=== PATIENT | male | born 1960 | race Caucasian/White ===

== ENCOUNTER → 2016-11-28 | Outpatient (CLI) | payer BC | LOC: M LAB 11:46 | PROVIDERS: ATTEND Nurse Practitioner Family | DX: E55.9 Vitamin D deficiency, unspecified (principal) ==

== ENCOUNTER 2017-01-19 13:36 | Emergency (ER) | payer BC ==
[2017-01-19] MEDS ORDERED: KETOROLAC 30 MG/ML VIAL (J1885) As Ordered ONE (13:50)
[2017-01-19] MEDS ORDERED: ONDANSETRON 4MG/2ML VIAL (J2405) As Ordered ONE (13:50)
[2017-01-19] MEDS ORDERED: HYDROmorphone HCL 1 MG/ML SYRINGE (J1170) As Ordered ONE (13:51)
[2017-01-19 14:25] LABS: BASO % 0.3 % (0.0-1.0); EOS # 0.1 K/mm3 (0.0-0.50); EOS % 1.5 % (0.0-3.0); LARGE UNSTAINED CELL # 0.2 K/mm3 (0.0-0.4); LARGE UNSTAINED CELL % 2.2 % (0.0-4.0); LYMPH # 2.3 K/mm3 (1.5-4.5); LYMPH % 24.8 % (24.0-44.0); MEAN CORPUSCULAR VOLUME 85.4 fl (80.0-96.0); MONO # 0.4 K/mm3 (0.0-0.8); MONO % 4.3 % (0.0-5.0); NEUTROPHILS # 6.2 K/mm3 (1.8-7.7); NEUTROPHILS % 66.8 % (36.0-66.0); PLATELET COUNT, AUTOMATED 300 k/mm3 (150-450); RED CELL DISTRIBUTION WIDTH 12.6 % (11.5-14.5); WHITE BLOOD COUNT 9.3 K/mm3 (4.0-10.0)
--- NOTE | 2017-01-19 14:29 | REP ---
Clinical: Left flank pain. Findings: Mild chronic-appearing symmetric perinephric stranding is appreciated along with 2 mm calculus in the left kidney upper pole and 2 mm calculus in the left renal pelvis. Right kidney is normal and without nephrolithiasis and the bilateral ureters are unremarkable and without obstructing calculi. The bladder is normal. Prostate gland appears normal for age. Liver, spleen, pancreas, gallbladder, and bilateral adrenal glands are normal for noncontrast evaluation. The enteric system is without obstruction or acute inflammatory process. Scattered diverticula noted without acute diverticulitis. Normal terminal ileum and appendix identified in the right lower quadrant bilateral fat containing inguinal hernias noted. Pelvis demonstrates normal bladder and age appropriate prostate gland. No pelvic fluid or ascites. No adenopathy. No mass lesion. No free air. Lung bases are clear. Impression: 1. Two 2 mm nonobstructing calculi in the left kidney. No evidence for hydronephrosis, hydroureter or obstructing ureteral calculi. Normal right kidney and bladder. 2. Colonic diverticula without acute diverticulitis. 3. Mildly prominent prostate gland. Signed by Clark Gray MD 01/19/2017 02:20 P
[2017-01-19 14:37] LABS: ANION GAP 10 MEQ/L (8-16); BLOOD UREA NITROGEN 14 MG/DL (7-18); CALCIUM LEVEL 9.1 MG/DL (8.5-10.1); CARBON DIOXIDE LEVEL 26 MEQ/L (21-32); CHLORIDE LEVEL 106 MEQ/L (98-107); CREATININE FOR GFR 1.27 MG/DL (0.70-1.30); GLOMERULAR FILTRATION RATE > 60.0 (>56); GLUCOSE, FASTING 164 MG/DL (70-105); POTASSIUM SERUM 4.4 MEQ/L (3.5-5.1); SODIUM LEVEL 142 MEQ/L (136-145)
--- NOTE | 2017-01-19 15:19 | EDDOCDS ---
Physician Documentation [facility] Name: Yakov Candelaria Age: 56 yrs Sex: Male : 1960 Arrival Date: 01/19/2017 Time: 13:36 Bed I5 / M5 Private MD: Fernando Maldonado [facility] Disposition: 01/19/17 15:11 Discharged to Home/Self Care. Impression: Unspecified renal colic. - Condition is Stable. - Discharge Instructions: Kidney Stones. - Prescriptions for Hydrocodone- Acetaminophen 5-325 mg Oral Tablet - take 1 tablet by ORAL route every 6 hours As needed MDD: 4 tabs; 16 tablet. - Medication Reconciliation form. - Follow up: Emergency Department; When: As needed. Follow up: Fernando Maldonado; When: Call to arrange an appointment; Reason: Wound/Symptom Recheck, Recheck today's complaints, Worsening of conditions, Continuance of care. - Problem is new. - Symptoms are resolved. Historical: - Allergies: no known allergies; - Home Meds: 1. atenolol 50 mg Oral tab 1 tab once daily 2. omeprazole 40 mg Oral cpDR 1 cap once daily 3. aspirin 81 mg Oral chew 1 tab once daily - PMHx: GERD; Hypertension; Kidney stones; - PSHx: Lithotripsy; - Social history: Smoking status: Patient states was never smoker of tobacco. No barriers to communication noted, The patient speaks fluent Guamanian, Speaks appropriately for age. - Family history: Not pertinent. - : The pt / caregiver states he / she is not on anticoagulants. Home medication list is obtained from the patient. - Exposure Risk Screening:: None identified. Vital Signs: 01/19 13:38 BP 117 / 61; Pulse 58; Resp 18; Temp 98.5(T); Pulse Ox 100% on R/A; Weight 102.06 kg / dem1 225 lbs (R); Height 5 ft. 11 in. (180.34 cm) (R); Pain 9/10; 14:36 BP 137 / 67; Pulse 60; Resp 18; Temp 96.9(O); Pulse Ox 96% on R/A; Pain 0/10; nb2 13:38 Body Mass Index 31.38 (102.06 kg, 180.34 cm) dem1 MDM: 13:48 Ondansetron 4 mg IVP once ordered. cc10 13:48 ketorolac 30 mg IVP once ordered. cc10 13:48 IV Saline Lock ordered. cc10 13:48 Dilaudid - HYDROmorphone 0.5 mg IVP once ordered. cc10 13:48 Basic Metabolic Profile Ordered. EDMS 13:48 CBC with Diff Ordered. EDMS 13:48 Urinalysis Ordered. EDMS 13:48 Urine Culture Ordered. EDMS 13:49 CT ABD & PELVIS: No Contrast Ordered. EDMS 14:38 Financial registration complete. mm15 14:40 [facility] Payment Agreement was scanned into [employer] and attached to record. mm15 15:06 Basic Metabolic Profile Reviewed. cc10 15:06 CBC with Diff Reviewed. cc10 15:06 Urinalysis Reviewed. cc10 Administered Medications: 13:54 Drug: Ondansetron 4 mg Route: IVP; Site: right antecubital; srm 13:56 Drug: ketorolac 30 mg [ketorolac 30 mg/mL (1 mL) injection solution (1 mL)] Route: IVP; srm Site: right antecubital; 13:58 Drug: Dilaudid - HYDROmorphone 0.5 mg [hydromorphone 1 mg/mL injection syringe (0.5 srm mL)] Route: IVP; Site: right antecubital; Signatures: Dispatcher [employer] Selena Contreras RN RN srm Linwood Albright mm15 Pankaj Pedraza, PA-C PA-C cc10 Agatha Walker RN RN kc3 The chart was reviewed and I authenticate all verbal orders and agree with the evaluation and treatment provided.Attachments: 14:40 [facility] Payment Agreement mm15 MTDD
--- NOTE | 2017-01-19 15:20 | EDDOCDS ---
Nurse's Notes [facility] Name: Yakov Candelaria Age: 56 yrs Sex: Male : 1960 Arrival Date: 01/19/2017 Time: 13:36 Bed I5 / M5 Private MD: Fernando Maldonado N[facility] Diagnosis: Unspecified renal colic Presentation: 01/19 13:41 Presenting complaint: Patient states: right lower abd pain to groin pain. hx of kidney srm stones. no difficulties urinating. nausea chills. Acute neurological deficits are not present. Mechanism of Injury: No Mechanism of Injury. Adult Sepsis Screening: The patient does not have new or worsening altered mentation. Patient's respiratory rate is less than 22. Systolic blood pressure is greater than 100. Patient has a qSOFA score of 0- Negative Sepsis Screen. Suicide/Homicide risk assessment- the patient denies having any suicidal and/or homicidal ideations and does not present with any other emotional, behavioral or mental health complaints. Status: Patient is not a nursing services manager or dependent. Transition of care: patient was not received from another setting of care. 13:41 Acuity: KAYLEE Level 3 [facility] 13:41 Method Of Arrival: Walkin/Carried/Asstd [facility] Triage Assessment: 13:42 General: Appears uncomfortable. Pain: Pain currently is 9 out of 10 on a pain scale. [facility] HIV screening NA for this visit Offered previously. Musculoskeletal: No deficits noted. Historical: - Allergies: no known allergies; - Home Meds: 1. atenolol 50 mg Oral tab 1 tab once daily 2. omeprazole 40 mg Oral cpDR 1 cap once daily 3. aspirin 81 mg Oral chew 1 tab once daily - PMHx: GERD; Hypertension; Kidney stones; - PSHx: Lithotripsy; - Social history: Smoking status: Patient states was never smoker of tobacco. No barriers to communication noted, The patient speaks fluent Dominican, Speaks appropriately for age. - Family history: Not pertinent. - : The pt / caregiver states he / she is not on anticoagulants. Home medication list is obtained from the patient. - Exposure Risk Screening:: None identified. Screenin:17 Screening information is obtained from the patient. Fall risk: No risks identified. kc3 Assistance ADL's: requires no assistance with activities of daily living. Assistance ADL's: requires no assistance with activities of daily living. Abuse/DV Screen: The patient / caregiver reports he/she is: not in a situation that causes fear, pain or injury. Nutritional screening: No deficits noted. Advance Directives: Currently, there is no health care proxy. home support is adequate. Assessment: 14:05 Pain: Pain currently is 8 out of 10 on a pain scale. GI: Reports LEFT LOWER ABD PAIN srm INTO GROIN. 15:17 General: Appears in no apparent distress, comfortable, Behavior is appropriate for age, kc3 cooperative. Pain: Denies pain. Respiratory: Respiratory effort is even, unlabored. Derm: Skin is normal. Vital Signs: 13:38 BP 117 / 61; Pulse 58; Resp 18; Temp 98.5(T); Pulse Ox 100% on R/A; Weight 102.06 kg dem1 (R); Height 5 ft. 11 in. (180.34 cm) (R); Pain 9/10; 14:36 BP 137 / 67; Pulse 60; Resp 18; Temp 96.9(O); Pulse Ox 96% on R/A; Pain 0/10; nb2 13:38 Body Mass Index 31.38 (102.06 kg, 180.34 cm) [facility] Vitals: 13:38 Log In Time: January 19, 2017 at 13:36. [facility] ED Course: 13:38 Patient visited by Jaswinder Johnston. dem1 13:38 Fernando Maldonado is Private Physician. [facility] 13:38 Patient moved to Waiting [facility] 13:39 Patient moved to Pre RCE dem1 13:42 Triage Initiated srm 13:42 Patient moved to I5 / M5 srm 13:43 Pankaj Pedraza PA-C is PHCP. cc10 13:43 Jules Faulkner MD is Attending Physician. cc10 13:43 Patient visited by Pankaj Pedraza PA-C. cc10 13:43 Patient visited by Pankaj Pedraza PA-C. cc10 13:52 The patient / caregiver is instructed regarding the plan of care and ED course. srm Accompanied by Significant Other, Patient has correct armband on for positive identification. Placed in gown. Bed in low position. 13:52 Inserted saline lock: 20 gauge in right antecubital area and blood collected. srm 14:04 Basic Metabolic Profile Sent. srm 14:04 CBC with Diff Sent. srm 14:07 Patient visited by Selena Whitfield RN. srm 14:35 Urinalysis Sent. kc3 14:35 Urine Culture Sent. kc3 14:36 Patient visited by Janet Mercer. nb2 14:40 [facility] Payment Agreement was scanned into [employer] and attached to record. mm15 15:11 Fernando Maldonado is Referral Physician. cc10 15:18 Discontinued IV lock intact, bleeding controlled, pressure dressing applied, No kc3 redness/swelling at site. No procedures done that require assistance. Administered Medications: 13:54 Drug: Ondansetron 4 mg Route: IVP; Site: right antecubital; srm 13:56 Drug: ketorolac 30 mg [ketorolac 30 mg/mL (1 mL) injection solution (1 mL)] Route: IVP; srm Site: right antecubital; 13:58 Drug: Dilaudid - HYDROmorphone 0.5 mg [hydromorphone 1 mg/mL injection syringe (0.5 srm mL)] Route: IVP; Site: right antecubital; Order Results: Lab Order: Basic Metabolic Profile; SPEC'M 01/19/17 13:51 Test: GLUCOSE, FASTING; Value: 164; Range: 70-105; Abnormal: Above high normal; Units: MG/DL; Status: F Test: BLOOD UREA NITROGEN; Value: 14; Range: 7-18; Units: MG/DL; Status: F Test: CREATININE FOR GFR; Value: 1.27; Range: 0.70-1.30; Units: MG/DL; Status: F Test: GLOMERULAR FILTRATION RATE; Value: > 60.0; Range: >56; Status: F Test: SODIUM LEVEL; Value: 142; Range: 136-145; Units: MEQ/L; Status: F Test: POTASSIUM SERUM; Value: 4.4; Range: 3.5-5.1; Units: MEQ/L; Status: F Test: CHLORIDE LEVEL; Value: 106; Range: 98-107; Units: MEQ/L; Status: F Test: CARBON DIOXIDE LEVEL; Value: 26; Range: 21-32; Units: MEQ/L; Status: F Test: ANION GAP; Value: 10; Range: 8-16; Units: MEQ/L; Status: F Test: CALCIUM LEVEL; Value: 9.1; Range: 8.5-10.1; Units: MG/DL; Status: F Test Note: ; Units are mL/min/1.73 m2 Chronic Kidney Disease Staging per NKF: Stage I & II GFR >=60 Normal to Mildly Decreased Stage III GFR 30-59 Moderately Decreased Stage IV GFR 15-29 Severely Decreased Stage V GFR <15 Very Little GFR Left ESRD GFR <15 on [employer] Lab Order: CBC with Diff; SPEC'M 01/19/17 13:51 Test: WHITE BLOOD COUNT; Value: 9.3; Range: 4.0-10.0; Units: K/mm3; Status: F Test: RED BLOOD COUNT; Value: 5.05; Range: 4.30-6.10; Units: M/mm3; Status: F Test: HEMOGLOBIN; Value: 14.7; Range: 14.0-18.0; Units: g/dl; Status: F Test: HEMATOCRIT; Value: 43.1; Range: 42.0-52.0; Units: %; Status: F Test: MEAN CORPUSCULAR VOLUME; Value: 85.4; Range: 80.0-96.0; Units: fl; Status: F Test: MEAN CORPUSCULAR HEMOGLOBIN; Value: 29.0; Range: 27.0-33.0; Units: pg; Status: F Test: MEAN CORPUSCULAR HGB CONC; Value: 34.0; Range: 32.0-36.5; Units: g/dl; Status: F Test: RED CELL DISTRIBUTION WIDTH; Value: 12.6; Range: 11.5-14.5; Units: %; Status: F Test: PLATELET COUNT, AUTOMATED; Value: 300; Range: 150-450; Units: k/mm3; Status: F Test: NEUTROPHILS %; Value: 66.8; Range: 36.0-66.0; Abnormal: Above high normal; Units: %; Status: F Test: LYMPH %; Value: 24.8; Range: 24.0-44.0; Units: %; Status: F Test: MONO %; Value: 4.3; Range: 0.0-5.0; Units: %; Status: F Test: EOS %; Value: 1.5; Range: 0.0-3.0; Units: %; Status: F Test: BASO %; Value: 0.3; Range: 0.0-1.0; Units: %; Status: F Test: LARGE UNSTAINED CELL %; Value: 2.2; Range: 0.0-4.0; Units: %; Status: F Test: NEUTROPHILS #; Value: 6.2; Range: 1.8-7.7; Units: K/mm3; Status: F Test: LYMPH #; Value: 2.3; Range: 1.5-4.5; Units: K/mm3; Status: F Test: MONO #; Value: 0.4; Range: 0.0-0.8; Units: K/mm3; Status: F Test: EOS #; Value: 0.1; Range: 0.0-0.50; Units: K/mm3; Status: F Test: BASO #; Value: 0.0; Range: 0.0-0.2; Units: K/mm3; Status: F Test: LARGE UNSTAINED CELL #; Value: 0.2; Range: 0.0-0.4; Units: K/mm3; Status: F Lab Order: Urinalysis; SPEC'M 01/19/17 14:30 Test: APPEARANCE, URINE; Value: CLOUDY; Range: CLEAR; Abnormal: Above high normal; Status: F Test: COLOR, URINE; Value: FREDO; Range: YELLOW; Status: F Test: PH,URINE; Value: 5.0; Range: 5.0-9.0; Units: UNITS; Status: F Test: SPECIFIC GRAVITY URINE AUTO; Value: 1.027; Range: 1.002-1.035; Status: F Test: PROTEIN, URINE AUTO; Value: 2+; Range: NEGATIVE; Abnormal: Above high normal; Units: mg/dL; Status: F Test: GLUCOSE, URINE (UA) AUTO; Value: NEGATIVE; Range: NEGATIVE; Units: mg/dL; Status: F Test: KETONE, URINE AUTO; Value: TRACE; Range: NEGATIVE; Abnormal: Above high normal; Units: mg/dL; Status: F Test: UROBILINOGEN, URINE AUTO; Value: 0.2; Range: 0.0-2.0; Units: mg/dL; Status: F Test: BILIRUBIN, URINE AUTO; Value: NEGATIVE; Range: NEGATIVE; Status: F Test: NITRITE, URINE AUTO; Value: NEGATIVE; Range: NEGATIVE; Status: F Test: LEUKOCYTE ESTERASE, URINE AUTO; Value: NEGATIVE; Range: NEGATIVE; Status: F Test: BLOOD, URINE BLOOD; Value: 3+; Range: NEGATIVE; Abnormal: Above high normal; Status: F Test: WBC, URINE AUTO; Value: 29; Range: 0-3; Abnormal: Above high normal; Units: /HPF; Status: F Test: RBC, URINE AUTO; Value: 130; Range: 0-3; Abnormal: Above high normal; Units: /HPF; Status: F Test: BACTERIA, URINE AUTO; Value: 1+; Range: NEGATIVE; Abnormal: Above high normal; Status: F Test: SQUAMOUS EPITHELIAL CELL UR AU; Value: 0; Range: 0-6; Units: /HPF; Status: F Test: MUCUS, URINE; Value: LARGE; Range: NEGATIVE; Status: F Test: HYALINE CAST, URINE AUTO; Value: 0; Range: 0-1; Units: /LPF; Status: F Outcome: 15:11 Discharge ordered by Provider. cc10 15:18 Discharge Assessment: Patient awake, alert and oriented x 3. No cognitive and/or kc3 functional deficits noted. Patient verbalized understanding of disposition instructions. patient administered narcotics - yes. Pt provided with safe discharge. The following High Risk Discharge criteria are identified: None. Discharged to home ambulatory. Condition: stable. Discharge instructions given to patient, Instructed on discharge instructions, follow up and referral plans. medication usage, Demonstrated understanding of instructions, medications, Pt was receptive of discharge instructions/ teaching. Prescriptions given X 1. No special radiology studies were completed. Property :Personal belongings accompany Pt. 15:18 Patient left the ED. kc3 Signatures: Selena Whitfield, RN RN Jaswinder Becker dem1 Linwood Albright mm15 Pankaj Pedraza, PA-C PA-C cc10 Agatha Walker RN RN kc3 Janet Mercer MTDD
--- NOTE | 2017-01-21 16:19 | EDDOCDS ---
Nurse's Notes [facility] Name: Yakov Candelaria Age: 56 yrs Sex: Male : 1960 Arrival Date: 01/19/2017 Time: 13:36 Bed I5 / M5 Private MD: Fernando Maldonado NCFM Diagnosis: Unspecified renal colic Presentation: 01/19 13:41 Presenting complaint: Patient states: right lower abd pain to groin pain. hx of kidney srm stones. no difficulties urinating. nausea chills. Acute neurological deficits are not present. Mechanism of Injury: No Mechanism of Injury. Adult Sepsis Screening: The patient does not have new or worsening altered mentation. Patient's respiratory rate is less than 22. Systolic blood pressure is greater than 100. Patient has a qSOFA score of 0- Negative Sepsis Screen. Suicide/Homicide risk assessment- the patient denies having any suicidal and/or homicidal ideations and does not present with any other emotional, behavioral or mental health complaints. Status: Patient is not a dispatcher service or work or dependent. Transition of care: patient was not received from another setting of care. 13:41 Acuity: KAYLEE Level 3 [facility] 13:41 Method Of Arrival: Walkin/Carried/Asstd [facility] Triage Assessment: 13:42 General: Appears uncomfortable. Pain: Pain currently is 9 out of 10 on a pain scale. [facility] HIV screening NA for this visit Offered previously. Musculoskeletal: No deficits noted. Historical: - Allergies: no known allergies; - Home Meds: 1. atenolol 50 mg Oral tab 1 tab once daily 2. omeprazole 40 mg Oral cpDR 1 cap once daily 3. aspirin 81 mg Oral chew 1 tab once daily - PMHx: GERD; Hypertension; Kidney stones; - PSHx: Lithotripsy; - Social history: Smoking status: Patient states was never smoker of tobacco. No barriers to communication noted, The patient speaks fluent Burundian, Speaks appropriately for age. - Family history: Not pertinent. - : The pt / caregiver states he / she is not on anticoagulants. Home medication list is obtained from the patient. - Exposure Risk Screening:: None identified. Screenin:17 Screening information is obtained from the patient. Fall risk: No risks identified. kc3 Assistance ADL's: requires no assistance with activities of daily living. Assistance ADL's: requires no assistance with activities of daily living. Abuse/DV Screen: The patient / caregiver reports he/she is: not in a situation that causes fear, pain or injury. Nutritional screening: No deficits noted. Advance Directives: Currently, there is no health care proxy. home support is adequate. Assessment: 14:05 Pain: Pain currently is 8 out of 10 on a pain scale. GI: Reports LEFT LOWER ABD PAIN srm INTO GROIN. 15:17 General: Appears in no apparent distress, comfortable, Behavior is appropriate for age, kc3 cooperative. Pain: Denies pain. Respiratory: Respiratory effort is even, unlabored. Derm: Skin is normal. Vital Signs: 13:38 BP 117 / 61; Pulse 58; Resp 18; Temp 98.5(T); Pulse Ox 100% on R/A; Weight 102.06 kg dem1 (R); Height 5 ft. 11 in. (180.34 cm) (R); Pain 9/10; 14:36 BP 137 / 67; Pulse 60; Resp 18; Temp 96.9(O); Pulse Ox 96% on R/A; Pain 0/10; nb2 13:38 Body Mass Index 31.38 (102.06 kg, 180.34 cm) [facility] Vitals: 13:38 Log In Time: January 19, 2017 at 13:36. [facility] ED Course: 13:38 Patient visited by Jaswinder Johnston. dem1 13:38 Fernando Maldonado is Private Physician. [facility] 13:38 Patient moved to Waiting [facility] 13:39 Patient moved to Pre RCE dem1 13:42 Triage Initiated srm 13:42 Patient moved to I5 / M5 srm 13:43 Pankaj Pedraza PA-C is PHCP. cc10 13:43 Jules Faulkner MD is Attending Physician. cc10 13:43 Patient visited by Pankaj Pedraza PA-C. cc10 13:43 Patient visited by Pankaj ePdraza PA-C. cc10 13:52 The patient / caregiver is instructed regarding the plan of care and ED course. srm Accompanied by Significant Other, Patient has correct armband on for positive identification. Placed in gown. Bed in low position. 13:52 Inserted saline lock: 20 gauge in right antecubital area and blood collected. srm 14:04 Basic Metabolic Profile Sent. srm 14:04 CBC with Diff Sent. srm 14:07 Patient visited by Selena Whitfield RN. srm 14:35 Urinalysis Sent. kc3 14:35 Urine Culture Sent. kc3 14:36 Patient visited by Janet Mercer. nb2 14:40 [facility] Payment Agreement was scanned into [employer] and attached to record. mm15 15:11 Fernando Maldonado is Referral Physician. cc10 15:18 Discontinued IV lock intact, bleeding controlled, pressure dressing applied, No kc3 redness/swelling at site. No procedures done that require assistance. 15:19 CT ABD & PELVIS: No Contrast Returned. EDMS 18:18 T-Sheet-- Draft Copy was scanned into [employer] and attached to record. klr Administered Medications: 13:54 Drug: Ondansetron 4 mg Route: IVP; Site: right antecubital; srm 13:56 Drug: ketorolac 30 mg [ketorolac 30 mg/mL (1 mL) injection solution (1 mL)] Route: IVP; srm Site: right antecubital; 13:58 Drug: Dilaudid - HYDROmorphone 0.5 mg [hydromorphone 1 mg/mL injection syringe (0.5 srm mL)] Route: IVP; Site: right antecubital; Order Results: Lab Order: Basic Metabolic Profile; SPEC'M 01/19/17 13:51 Test: GLUCOSE, FASTING; Value: 164; Range: 70-105; Abnormal: Above high normal; Units: MG/DL; Status: F Test: BLOOD UREA NITROGEN; Value: 14; Range: 7-18; Units: MG/DL; Status: F Test: CREATININE FOR GFR; Value: 1.27; Range: 0.70-1.30; Units: MG/DL; Status: F Test: GLOMERULAR FILTRATION RATE; Value: > 60.0; Range: >56; Status: F Test: SODIUM LEVEL; Value: 142; Range: 136-145; Units: MEQ/L; Status: F Test: POTASSIUM SERUM; Value: 4.4; Range: 3.5-5.1; Units: MEQ/L; Status: F Test: CHLORIDE LEVEL; Value: 106; Range: 98-107; Units: MEQ/L; Status: F Test: CARBON DIOXIDE LEVEL; Value: 26; Range: 21-32; Units: MEQ/L; Status: F Test: ANION GAP; Value: 10; Range: 8-16; Units: MEQ/L; Status: F Test: CALCIUM LEVEL; Value: 9.1; Range: 8.5-10.1; Units: MG/DL; Status: F Test Note: ; Units are mL/min/1.73 m2 Chronic Kidney Disease Staging per NKF: Stage I & II GFR >=60 Normal to Mildly Decreased Stage III GFR 30-59 Moderately Decreased Stage IV GFR 15-29 Severely Decreased Stage V GFR <15 Very Little GFR Left ESRD GFR <15 on TOOL PUSHER Lab Order: CBC with Diff; SPEC'M 01/19/17 13:51 Test: WHITE BLOOD COUNT; Value: 9.3; Range: 4.0-10.0; Units: K/mm3; Status: F Test: RED BLOOD COUNT; Value: 5.05; Range: 4.30-6.10; Units: M/mm3; Status: F Test: HEMOGLOBIN; Value: 14.7; Range: 14.0-18.0; Units: g/dl; Status: F Test: HEMATOCRIT; Value: 43.1; Range: 42.0-52.0; Units: %; Status: F Test: MEAN CORPUSCULAR VOLUME; Value: 85.4; Range: 80.0-96.0; Units: fl; Status: F Test: MEAN CORPUSCULAR HEMOGLOBIN; Value: 29.0; Range: 27.0-33.0; Units: pg; Status: F Test: MEAN CORPUSCULAR HGB CONC; Value: 34.0; Range: 32.0-36.5; Units: g/dl; Status: F Test: RED CELL DISTRIBUTION WIDTH; Value: 12.6; Range: 11.5-14.5; Units: %; Status: F Test: PLATELET COUNT, AUTOMATED; Value: 300; Range: 150-450; Units: k/mm3; Status: F Test: NEUTROPHILS %; Value: 66.8; Range: 36.0-66.0; Abnormal: Above high normal; Units: %; Status: F Test: LYMPH %; Value: 24.8; Range: 24.0-44.0; Units: %; Status: F Test: MONO %; Value: 4.3; Range: 0.0-5.0; Units: %; Status: F Test: EOS %; Value: 1.5; Range: 0.0-3.0; Units: %; Status: F Test: BASO %; Value: 0.3; Range: 0.0-1.0; Units: %; Status: F Test: LARGE UNSTAINED CELL %; Value: 2.2; Range: 0.0-4.0; Units: %; Status: F Test: NEUTROPHILS #; Value: 6.2; Range: 1.8-7.7; Units: K/mm3; Status: F Test: LYMPH #; Value: 2.3; Range: 1.5-4.5; Units: K/mm3; Status: F Test: MONO #; Value: 0.4; Range: 0.0-0.8; Units: K/mm3; Status: F Test: EOS #; Value: 0.1; Range: 0.0-0.50; Units: K/mm3; Status: F Test: BASO #; Value: 0.0; Range: 0.0-0.2; Units: K/mm3; Status: F Test: LARGE UNSTAINED CELL #; Value: 0.2; Range: 0.0-0.4; Units: K/mm3; Status: F Lab Order: Urinalysis; SPEC'M 01/19/17 14:30 Test: APPEARANCE, URINE; Value: CLOUDY; Range: CLEAR; Abnormal: Above high normal; Status: F Test: COLOR, URINE; Value: FREDO; Range: YELLOW; Status: F Test: PH,URINE; Value: 5.0; Range: 5.0-9.0; Units: UNITS; Status: F Test: SPECIFIC GRAVITY URINE AUTO; Value: 1.027; Range: 1.002-1.035; Status: F Test: PROTEIN, URINE AUTO; Value: 2+; Range: NEGATIVE; Abnormal: Above high normal; Units: mg/dL; Status: F Test: GLUCOSE, URINE (UA) AUTO; Value: NEGATIVE; Range: NEGATIVE; Units: mg/dL; Status: F Test: KETONE, URINE AUTO; Value: TRACE; Range: NEGATIVE; Abnormal: Above high normal; Units: mg/dL; Status: F Test: UROBILINOGEN, URINE AUTO; Value: 0.2; Range: 0.0-2.0; Units: mg/dL; Status: F Test: BILIRUBIN, URINE AUTO; Value: NEGATIVE; Range: NEGATIVE; Status: F Test: NITRITE, URINE AUTO; Value: NEGATIVE; Range: NEGATIVE; Status: F Test: LEUKOCYTE ESTERASE, URINE AUTO; Value: NEGATIVE; Range: NEGATIVE; Status: F Test: BLOOD, URINE BLOOD; Value: 3+; Range: NEGATIVE; Abnormal: Above high normal; Status: F Test: WBC, URINE AUTO; Value: 29; Range: 0-3; Abnormal: Above high normal; Units: /HPF; Status: F Test: RBC, URINE AUTO; Value: 130; Range: 0-3; Abnormal: Above high normal; Units: /HPF; Status: F Test: BACTERIA, URINE AUTO; Value: 1+; Range: NEGATIVE; Abnormal: Above high normal; Status: F Test: SQUAMOUS EPITHELIAL CELL UR AU; Value: 0; Range: 0-6; Units: /HPF; Status: F Test: MUCUS, URINE; Value: LARGE; Range: NEGATIVE; Status: F Test: HYALINE CAST, URINE AUTO; Value: 0; Range: 0-1; Units: /LPF; Status: F Lab Order: Urine Culture; SPEC'M 01/19/17 14:30 Test: URINE CULTURE; Value: <EXTERNAL COMMENT eCWMed> FULL REPORT IN LAB NOTES (eCW and Medent).; Status: F Test: URINE CULTURE; Value: URINE CULTURE RESULT NO GROWTH; Status: F Radiology Order: CT ABD & PELVIS: No Contrast Test: CT ABD & PELVIS: No Contrast REASON FOR EXAMINATION: Renal colic; Clinical: Left flank pain.; ; Findings:; Mild chronic-appearing symmetric perinephric stranding is appreciated along with; 2 mm calculus in the left kidney upper pole and 2 mm calculus in the left renal; pelvis. Right kidney is normal and without nephrolithiasis and the bilateral; ureters are unremarkable and without obstructing calculi. The bladder is normal.; Prostate gland appears normal for age.; ; Liver, spleen, pancreas, gallbladder, and bilateral adrenal glands are normal for; noncontrast evaluation. The enteric system is without obstruction or acute; inflammatory process. Scattered diverticula noted without acute diverticulitis.; Normal terminal ileum and appendix identified in the right lower quadrant; bilateral fat containing inguinal hernias noted. Pelvis demonstrates normal; bladder and age appropriate prostate gland. No pelvic fluid or ascites. No; adenopathy. No mass lesion. No free air. Lung bases are clear.; ; Impression:; 1. Two 2 mm nonobstructing calculi in the left kidney. No evidence for; hydronephrosis, hydroureter or obstructing ureteral calculi. Normal right kidney; and bladder.; 2. Colonic diverticula without acute diverticulitis.; 3. Mildly prominent prostate gland.; ; ; ; Signed by; Clark Gray MD 01/19/2017 02:20 P; Outcome: 15:11 Discharge ordered by Provider. cc10 15:18 Discharge Assessment: Patient awake, alert and oriented x 3. No cognitive and/or kc3 functional deficits noted. Patient verbalized understanding of disposition instructions. patient administered narcotics - yes. Pt provided with safe discharge. The following High Risk Discharge criteria are identified: None. Discharged to home ambulatory. Condition: stable. Discharge instructions given to patient, Instructed on discharge instructions, follow up and referral plans. medication usage, Demonstrated understanding of instructions, medications, Pt was receptive of discharge instructions/ teaching. Prescriptions given X 1. No special radiology studies were completed. Property :Personal belongings accompany Pt. 15:18 Patient left the ED. kc3 Signatures: Dispatcher [employer] EDMS Selena Whitfield, RN RN Jaswinder Becker dem1 Linwood Albright mm15 Pankaj Pedraza, PA-C PA-C cc10 Agatha Walker RN RN kc3 Marissa Deras Nicole nb2 Chart Complete MTDD
--- NOTE | 2017-01-21 16:19 | EDDOCDS ---
Physician Documentation [facility] Name: Yakov Candelaria Age: 56 yrs Sex: Male : 1960 Arrival Date: 01/19/2017 Time: 13:36 Bed I5 / M5 Private MD: Fernando Maldonado [facility] Disposition: 01/19/17 15:11 Discharged to Home/Self Care. Impression: Unspecified renal colic. - Condition is Stable. - Discharge Instructions: Kidney Stones. - Prescriptions for Hydrocodone- Acetaminophen 5-325 mg Oral Tablet - take 1 tablet by ORAL route every 6 hours As needed MDD: 4 tabs; 16 tablet. - Medication Reconciliation form. - Follow up: Emergency Department; When: As needed. Follow up: Fernando Madlonado; When: Call to arrange an appointment; Reason: Wound/Symptom Recheck, Recheck today's complaints, Worsening of conditions, Continuance of care. - Problem is new. - Symptoms are resolved. Historical: - Allergies: no known allergies; - Home Meds: 1. atenolol 50 mg Oral tab 1 tab once daily 2. omeprazole 40 mg Oral cpDR 1 cap once daily 3. aspirin 81 mg Oral chew 1 tab once daily - PMHx: GERD; Hypertension; Kidney stones; - PSHx: Lithotripsy; - Social history: Smoking status: Patient states was never smoker of tobacco. No barriers to communication noted, The patient speaks fluent Cypriot, Speaks appropriately for age. - Family history: Not pertinent. - : The pt / caregiver states he / she is not on anticoagulants. Home medication list is obtained from the patient. - Exposure Risk Screening:: None identified. Vital Signs: 01/19 13:38 BP 117 / 61; Pulse 58; Resp 18; Temp 98.5(T); Pulse Ox 100% on R/A; Weight 102.06 kg / dem1 225 lbs (R); Height 5 ft. 11 in. (180.34 cm) (R); Pain 9/10; 14:36 BP 137 / 67; Pulse 60; Resp 18; Temp 96.9(O); Pulse Ox 96% on R/A; Pain 0/10; nb2 13:38 Body Mass Index 31.38 (102.06 kg, 180.34 cm) dem1 MDM: 13:48 Ondansetron 4 mg IVP once ordered. cc10 13:48 ketorolac 30 mg IVP once ordered. cc10 13:48 IV Saline Lock ordered. cc10 13:48 Dilaudid - HYDROmorphone 0.5 mg IVP once ordered. cc10 13:48 Basic Metabolic Profile Ordered. EDMS 13:48 CBC with Diff Ordered. EDMS 13:48 Urinalysis Ordered. EDMS 13:48 Urine Culture Ordered. EDMS 13:49 CT ABD & PELVIS: No Contrast Ordered. EDMS 14:38 Financial registration complete. mm15 14:40 [facility] Payment Agreement was scanned into [employer] and attached to record. mm15 15:06 Basic Metabolic Profile Reviewed. cc10 15:06 CBC with Diff Reviewed. cc10 15:06 Urinalysis Reviewed. cc10 18:18 T-Sheet-- Draft Copy was scanned into [employer] and attached to record. klr Administered Medications: 13:54 Drug: Ondansetron 4 mg Route: IVP; Site: right antecubital; srm 13:56 Drug: ketorolac 30 mg [ketorolac 30 mg/mL (1 mL) injection solution (1 mL)] Route: IVP; srm Site: right antecubital; 13:58 Drug: Dilaudid - HYDROmorphone 0.5 mg [hydromorphone 1 mg/mL injection syringe (0.5 srm mL)] Route: IVP; Site: right antecubital; Signatures: Dispatcher [employer] EDMS Selena Whitfield RN RN [facility] Linwood Albright mm15 Pankaj Pedraza PAAlbaC PA-C cc10 Agatha Walker RN RN kc3 Marissa Deras klr The chart was reviewed and I authenticate all verbal orders and agree with the evaluation and treatment provided.Attachments: 14:40 [facility] Payment Agreement mm15 18:18 T-Sheet-- Draft Copy klr Chart Complete MTDD
--- NOTE | 2017-01-21 16:19 | EDDOCDS ---
Physician Documentation [facility] Name: Yakov Candelaria Age: 56 yrs Sex: Male : 1960 Arrival Date: 01/19/2017 Time: 13:36 Bed I5 / M5 Private MD: Fernando Maldonado [facility] Disposition: 01/19/17 15:11 Discharged to Home/Self Care. Impression: Unspecified renal colic. - Condition is Stable. - Discharge Instructions: Kidney Stones. - Prescriptions for Hydrocodone- Acetaminophen 5-325 mg Oral Tablet - take 1 tablet by ORAL route every 6 hours As needed MDD: 4 tabs; 16 tablet. - Medication Reconciliation form. - Follow up: Emergency Department; When: As needed. Follow up: Fernando Maldonado; When: Call to arrange an appointment; Reason: Wound/Symptom Recheck, Recheck today's complaints, Worsening of conditions, Continuance of care. - Problem is new. - Symptoms are resolved. Historical: - Allergies: no known allergies; - Home Meds: 1. atenolol 50 mg Oral tab 1 tab once daily 2. omeprazole 40 mg Oral cpDR 1 cap once daily 3. aspirin 81 mg Oral chew 1 tab once daily - PMHx: GERD; Hypertension; Kidney stones; - PSHx: Lithotripsy; - Social history: Smoking status: Patient states was never smoker of tobacco. No barriers to communication noted, The patient speaks fluent British, Speaks appropriately for age. - Family history: Not pertinent. - : The pt / caregiver states he / she is not on anticoagulants. Home medication list is obtained from the patient. - Exposure Risk Screening:: None identified. Vital Signs: 01/19 13:38 BP 117 / 61; Pulse 58; Resp 18; Temp 98.5(T); Pulse Ox 100% on R/A; Weight 102.06 kg / dem1 225 lbs (R); Height 5 ft. 11 in. (180.34 cm) (R); Pain 9/10; 14:36 BP 137 / 67; Pulse 60; Resp 18; Temp 96.9(O); Pulse Ox 96% on R/A; Pain 0/10; nb2 13:38 Body Mass Index 31.38 (102.06 kg, 180.34 cm) dem1 MDM: 13:48 Ondansetron 4 mg IVP once ordered. cc10 13:48 ketorolac 30 mg IVP once ordered. cc10 13:48 IV Saline Lock ordered. cc10 13:48 Dilaudid - HYDROmorphone 0.5 mg IVP once ordered. cc10 13:48 Basic Metabolic Profile Ordered. EDMS 13:48 CBC with Diff Ordered. EDMS 13:48 Urinalysis Ordered. EDMS 13:48 Urine Culture Ordered. EDMS 13:49 CT ABD & PELVIS: No Contrast Ordered. EDMS 14:38 Financial registration complete. mm15 14:40 [facility] Payment Agreement was scanned into [employer] and attached to record. mm15 15:06 Basic Metabolic Profile Reviewed. cc10 15:06 CBC with Diff Reviewed. cc10 15:06 Urinalysis Reviewed. cc10 18:18 T-Sheet-- Draft Copy was scanned into [employer] and attached to record. klr Administered Medications: 13:54 Drug: Ondansetron 4 mg Route: IVP; Site: right antecubital; srm 13:56 Drug: ketorolac 30 mg [ketorolac 30 mg/mL (1 mL) injection solution (1 mL)] Route: IVP; srm Site: right antecubital; 13:58 Drug: Dilaudid - HYDROmorphone 0.5 mg [hydromorphone 1 mg/mL injection syringe (0.5 srm mL)] Route: IVP; Site: right antecubital; Signatures: Dispatcher [employer] EDMS Selena Whitfield RN RN [facility] Linwood Albright mm15 Pankaj Pedraza PAAlbaC PA-C cc10 Agatha Walker RN RN kc3 Marissa Deras klr The chart was reviewed and I authenticate all verbal orders and agree with the evaluation and treatment provided.Attachments: 14:40 [facility] Payment Agreement mm15 18:18 T-Sheet-- Draft Copy klr Chart Complete MTDD
== END 2017-01-19 15:18 | disposition home or self-care (01) ==
LOC: M ED 13:36
DX: N20.1 Calculus of ureter (principal); I10 Essential (primary) hypertension; K21.9 Gastro-esophageal reflux disease without esophagitis; Z87.442 Personal history of urinary calculi; Z79.899 Other long term (current) drug therapy; Z79.82 Long term (current) use of aspirin
CPT/HCPCS: 36415; 74176; 80048; 81001; 85025; 87086; 96374; 96375; 99284; J1170; J1885; J2405

== ENCOUNTER → 2017-01-30 | Outpatient (CLI) | payer BC ==
[2017-01-31 14:13] LABS: PSA TOTAL 0.7 ng/mL (0.0-4.0)
== END ==
LOC: M LAB 10:20
PROVIDERS: ATTEND Nurse Practitioner Family
DX: Z12.5 Encounter for screening for malignant neoplasm of prostate (principal)

== ENCOUNTER 2017-06-29 10:28 | Emergency (ER) | payer BC ==
[~2017-06-29] VITALS: Ht 177.8 cm; Wt 100.0 kg
[2017-06-29] MEDS ORDERED: ATEN50TA2 PO (10:35)
[2017-06-29] MEDS ORDERED: ASPI1TAB PO (10:35)
[2017-06-29] MEDS ORDERED: OMEP40CA2 PO (10:35)
[2017-06-29] MEDS ORDERED: NS 1,000 ML IV ONE (11:00)
[2017-06-29] MEDS ORDERED: MORPHINE 2 MG/ML 1ML SYRINGE IV PRN (11:00)
[2017-06-29] MEDS ORDERED: ONDANSETRON 4MG/2ML VIAL (J2405) IV ONE (11:00)
[2017-06-29 11:59] LABS: YEAST LIKE CELL URINE AUTO SMALL
--- NOTE | 2017-06-29 12:45 | REP ---
REASON: Flank pain. COMPARISON: 01/19/2017 which showed two 2 mm sized nonobstructing left renal calculi. The lung bases are clear and unchanged. Limited evaluation of the solid intra-abdominal organs and gallbladder shows no gross abnormalities or significant changes from the prior exam. Limited evaluation of the pancreas and adrenal glands shows no gross abnormalities or significant changes from the prior exam. Limited evaluation of the adrenal glands shows no gross abnormalities or significant changes from the prior exam. The right kidney is again seen to be within normal limits. Once again, there are two nonobstructing left nephroliths, which are unchanged. There is no hydronephrosis or hydroureter. There are no ureteroliths. Limited evaluation of the abdominal aorta and para-aortic regions shows no gross abnormalities or significant changes from the prior exam. Limited evaluation of the intra-abdominal and intrapelvic bowel loops and their mesenteries shows no gross abnormalities or significant changes from the prior exam. There is sigmoid colon diverticulosis. No free fluid or free air is seen in the abdomen or pelvis. There is corpora amylacea, status quo. Bone window technique throughout the exam shows the osseous structures to be stable and intact. IMPRESSION: Two nonobstructing left nephroliths which are unchanged from the prior exam, as described above. Signed by Nicolas Tang DO 06/29/2017 01:58 P
[2017-06-29 13:01] LABS: BASO % 0.2 % (0.0-1.0); EOS % 0.4 % (0.0-3.0); LARGE UNSTAINED CELL # 0.1 K/mm3 (0.0-0.4); LARGE UNSTAINED CELL % 0.7 % (0.0-4.0); LYMPH % 9.3 % (24.0-44.0); MEAN CORPUSCULAR HEMOGLOBIN 30.4 pg (27.0-33.0); MEAN CORPUSCULAR HGB CONC 34.3 g/dl (32.0-36.5); MEAN CORPUSCULAR VOLUME 88.8 fl (80.0-96.0); MONO # 0.4 K/mm3 (0.0-0.8); MONO % 4.4 % (0.0-5.0); NEUTROPHILS # 8.3 K/mm3 (1.8-7.7); PLATELET COUNT, AUTOMATED 211 k/mm3 (150-450); RED CELL DISTRIBUTION WIDTH 13.2 % (11.5-14.5); WHITE BLOOD COUNT 9.8 K/mm3 (4.0-10.0)
[2017-06-29 13:18] LABS: ALBUMIN/GLOBULIN RATIO 1.25 (1.00-1.93); BILIRUBIN,DIRECT 0.3 MG/DL (0.0-0.2); BILIRUBIN,TOTAL 1.7 MG/DL (0.2-1.0); CALCIUM LEVEL 9.1 MG/DL (8.5-10.1); CREATININE FOR GFR 1.38 MG/DL (0.70-1.30); GLOMERULAR FILTRATION RATE 56.3 (>56); POTASSIUM SERUM 4.8 MEQ/L (3.5-5.1); TOTAL PROTEIN 7.2 GM/DL (6.4-8.2)
[2017-06-29 15:14] VITALS: BP 118/62
[2017-08-03] MEDS ORDERED: FLOM5CAP PO (16:22)
[2017-08-09] MEDS ORDERED: FLOM5CAP PO (09:22)
[2017-08-09] MEDS ORDERED: TYLE650T35 PO (09:22)
== END 2017-06-29 15:17 | disposition home or self-care (01) ==
LOC: M ED 10:28
DX: R31.9 Hematuria, unspecified (principal); M54.9 Dorsalgia, unspecified; I10 Essential (primary) hypertension; K21.9 Gastro-esophageal reflux disease without esophagitis
CPT/HCPCS: 36415; 74176; 80048; 80076; 81001; 83690; 85025; 87086; 96361; 96374; 96375; 99283; J2405

== ENCOUNTER → 2017-07-11 | Outpatient (REF) | payer BC ==
[~2017-07-11] MED LIST: ASPI1TAB PO; ATEN50TA2 PO; FLOM5CAP PO; OMEP40CA2 PO; TYLE650T35 PO
[2017-07-11 18:50] LABS: CALCIUM OXALATE CRYSTALS SMALL
== END ==
LOC: M SMT 17:09
PROVIDERS: ATTEND Nurse Practitioner Women's Health
DX: N20.0 Calculus of kidney (principal); R31.9 Hematuria, unspecified

== ENCOUNTER → 2017-07-12 | Outpatient (CLI) | payer BC ==
[2017-07-12 14:02] LABS: CALCIUM LEVEL 8.8 MG/DL (8.5-10.1); CREATININE FOR GFR 1.37 MG/DL (0.70-1.30); GLOMERULAR FILTRATION RATE 56.8 (>56); POTASSIUM SERUM 4.9 MEQ/L (3.5-5.1)
== END ==
LOC: M SMT 07:54
PROVIDERS: ATTEND Nurse Practitioner Women's Health
DX: R31.9 Hematuria, unspecified (principal)

== ENCOUNTER → 2017-07-18 | Outpatient (CLI) | payer BC ==
[~2017-07-18] MED LIST changes: +ISOVUE-370 76% 100ML VIAL (Q9967) As Ordered ONE
--- NOTE | 2017-07-18 18:51 | REP ---
CT abdomen pelvis without and with IV contrast: Without oral contrast. CT urogram. History: Hematuria. Comparison CT study 06/29/2017. CT findings: Digital preliminary snorkelling instructor radiograph is unremarkable. The lung bases are clear. The liver and the spleen are normal in size homogeneous in texture. No adrenal lesion is seen on either side. The gallbladder and the pancreas are unremarkable. There is no evidence of right-sided intrarenal calculus or right ureteral calculus. On the left however there is an intrarenal calculus in the upper pole of the left kidney measuring 5 mm in greatest diameter. In addition there is a 5 mm calculus in the left renal pelvis at the ureteropelvic junction. No hydronephrosis is seen however. No more distal ureteral stone is seen. There are pelvic phleboliths. There are prostate calcifications. Urinary bladder is unremarkable. Kidneys enhance symmetrically. No retroperitoneal mass or adenopathy is seen. Small and large intestinal bowel loops are unremarkable. Impression: Intrarenal nephrolithiasis on the left. There is also a 5 mm calculus in the left renal pelvis without visible hydronephrosis. No renal mass lesion is seen. No ureteral or bladder mass lesion is observed. Prostate calcifications seen. Signed by Dru Molina MD 07/19/2017 08:53 A
== END ==
LOC: M RAD 15:15
PROVIDERS: ATTEND Nurse Practitioner Women's Health
DX: R31.9 Hematuria, unspecified (principal); N20.0 Calculus of kidney; N42.0 Calculus of prostate
CPT/HCPCS: 74178; Q9967

== ENCOUNTER → 2017-07-19 | Outpatient (CLI) | payer BC ==
[~2017-07-19] MED LIST changes: -ISOVUE-370 76% 100ML VIAL (Q9967) As Ordered ONE
[2017-07-19 18:53] LABS: INR 1.03; MEAN CORPUSCULAR HEMOGLOBIN 30.7 pg (27.0-33.0); MEAN CORPUSCULAR HGB CONC 34.5 g/dl (32.0-36.5); RED CELL DISTRIBUTION WIDTH 12.9 % (11.5-14.5); WHITE BLOOD COUNT 6.5 K/mm3 (4.0-10.0)
== END ==
LOC: M SMT 13:52
PROVIDERS: ATTEND Nurse Practitioner Women's Health
DX: Z01.818 Encounter for other preprocedural examination (principal); N20.0 Calculus of kidney

== ENCOUNTER → 2017-08-09 | Day surgery (SDC) | payer BC ==
[~2017-08-09] VITALS: Ht 177.8 cm; Wt 102.1 kg
[~2017-08-09] MED LIST changes: +GLYCOPYRROLATE INJ 0.2 MG/ML 2 ML VIAL As Ordered ONE; +KETAMINE HCL 200 MG/20 ML VIAL As Ordered ONE; +LIDOCAINE 2% INJ 100 MG/5 ML SDV (FOR ANES.) As Ordered ONE; +MIDAZOLAM INJ 2 MG/2 ML VIAL (J2250) As Ordered ONE; +PROPOFOL 200 MG/20 ML VIAL As Ordered ONE; +fentaNYL 100 MCG/2 ML INJECTION (J3010) As Ordered ONE
[2017-08-09] MEDS: LR 1,000 ML IV SCH ×2 (06:48→11:04)
--- NOTE | 2017-08-09 08:38 | REP ---
SUPINE ABDOMEN: 08/09/2017. Clinical history: Left nephrolithiasis. Comparison: CT abdomen 07/18/2017. Findings: In the region of the left renal fossa overlying the expected position lower pole left kidney is a 6 mm calcification. This is likely the same stone seen in the [facility] on CT in June. Small marginal osteophyte at L4. I see no focal bone lesion. Minor degenerative changes of the hips. Gas pattern nonspecific. Some prostate calcifications noted. A pelvic phlebolith on the left. Impression: 1. A 6 mm stone overlying the lower pole left kidney. Signed by Tanner Gómez MD 08/09/2017 10:20 A
[2017-08-09 11:05] VITALS: BP 99/54
--- NOTE | 2017-08-09 11:22 | RO ---
DATE OF PROCEDURE: 08/09/2017 PREPROCEDURE DIAGNOSIS: Left kidney stone. POSTPROCEDURE DIAGNOSIS: Left kidney stone. PROCEDURE: Left extracorporal shockwave lithotripsy. SURGEON: Dr. Rian Houston. ADVERTISING TEACHER: None. ANESTHESIA: MAC. COMPARISON: None. ESTIMATED BLOOD LOSS: N/A HISTORY OF PRESENT ILLNESS: This is a 56-year-old male patient with left flank pain. He has a 6 mm left kidney stone. For this reason, he has consented for extracorporal shockwave lithotripsy on the left kidney stone. DESCRIPTION OF PROCEDURE: With the patient under MAC anesthesia in supine position, after finding the stone, which was in the mid level of the terrie 6 mm stone with x-ray, which was fairly easy to find. We gave a total of 2500 shockwave lithotripsy impulses at a power of 1-20. The first 100 shockwaves was done at a level of 1-5. The following 100 shockwaves were on a level of 6-10. The final 100 shockwaves was done at a level 11-15 and the final 2200 shockwaves were done at a level of 16-20. The patient tolerated the procedure well. He will go home today with Flomax and pain medication. Followup in [facility] in 2 weeks.
== END | disposition home or self-care (01) ==
LOC: M SDC 05:44
PROVIDERS: ATTEND Urology
DX: N20.0 Calculus of kidney (principal); K21.9 Gastro-esophageal reflux disease without esophagitis; I10 Essential (primary) hypertension; R31.9 Hematuria, unspecified; K44.9 Diaphragmatic hernia without obstruction or gangrene; L30.9 Dermatitis, unspecified; G43.909 Migraine, unspecified, not intractable, without status migrainosus; R06.83 Snoring; Z79.899 Other long term (current) drug therapy; Z79.82 Long term (current) use of aspirin; Z86.79 Personal history of other diseases of the circulatory system
CPT/HCPCS: 50590; 74000; J0690; J2250; J3010

== ENCOUNTER → 2017-08-30 | Outpatient (CLI) | payer BC ==
[~2017-08-30] MED LIST changes: -GLYCOPYRROLATE INJ 0.2 MG/ML 2 ML VIAL As Ordered ONE; -KETAMINE HCL 200 MG/20 ML VIAL As Ordered ONE; -LIDOCAINE 2% INJ 100 MG/5 ML SDV (FOR ANES.) As Ordered ONE; -MIDAZOLAM INJ 2 MG/2 ML VIAL (J2250) As Ordered ONE; -PROPOFOL 200 MG/20 ML VIAL As Ordered ONE; -fentaNYL 100 MCG/2 ML INJECTION (J3010) As Ordered ONE
--- NOTE | 2017-08-30 09:51 | REP ---
KUB: Single view. History: Kidney stone. Comparison study: August 09, 2017. Comparison CT study July 18, 2017. Findings: The previously noted intrarenal lower pole calculus left kidney is no longer apparent. There is a 3 mm calculus persisting in the upper pole of the left kidney. There are prostate calcifications again noted. No ureteral calculus is observed. Visualized bowel gas pattern is normal. Impression: Prostate calcifications again visible. Previously noted lower pole calculus on the left is no longer apparent. There is a persistent 3 mm upper pole calculus. Signed by Dru Molina MD 08/30/2017 11:24 A
[2017-08-30 13:57] LABS: IONIZED CALCIUM 4.7 MG/DL (4.5-5.3)
[2017-08-30 14:32] LABS: ANION GAP 6 MEQ/L (8-16); BLOOD UREA NITROGEN 13 MG/DL (7-18); CALCIUM LEVEL 9.1 MG/DL (8.5-10.1); CARBON DIOXIDE LEVEL 30 MEQ/L (21-32); CHLORIDE LEVEL 106 MEQ/L (98-107); CREATININE FOR GFR 1.25 MG/DL (0.70-1.30); GLOMERULAR FILTRATION RATE > 60.0 (>56); GLUCOSE, FASTING 86 MG/DL (70-105); MAGNESIUM LEVEL 2.1 MG/DL (1.8-2.4); PHOSPHORUS LEVEL 2.6 MG/DL (2.5-4.9); SODIUM LEVEL 142 MEQ/L (136-145); URIC ACID 5.7 MG/DL (3.5-7.2)
[2017-08-30 14:35] LABS: POTASSIUM SERUM 5.2 MEQ/L (3.5-5.1)
== END ==
LOC: M SMT 08:50
PROVIDERS: ATTEND Nurse Practitioner Women's Health
DX: N20.0 Calculus of kidney (principal); N42.0 Calculus of prostate

== ENCOUNTER → 2017-11-06 | Outpatient (REF) | payer BC ==
[2017-11-06 18:48] LABS: CALCIUM LEVEL 8.8 MG/DL (8.5-10.1); PHOSPHORUS LEVEL 2.7 MG/DL (2.5-4.9)
== END ==
LOC: M LABDRAW1 17:43
PROVIDERS: ATTEND Internal Medicine Endocrinology, Diabetes & Metabolism
DX: E21.0 Primary hyperparathyroidism (principal)

== ENCOUNTER → 2017-11-16 | Outpatient (CLI) | payer BC ==
--- NOTE | 2017-11-16 15:01 | REP ---
NUCLEAR SESTAMIBI PARATHYROID SCAN: Following the intravenous administration of 25.9 millicuries technetium 99m, sestamibi, multiple images of the neck are performed 15 minutes and 4 hours post injection. Delayed SPECT images are also performed in the axial, sagittal and coronal planes. Initial 15-minute images show symmetrical salivary gland and thyroid uptake. There is persistent salivary gland uptake on the delayed images. There is washout from the thyroid bed bilaterally. I see no persistent focus of uptake that would suggest the presence of a parathyroid adenoma. IMPRESSION: No scintigraphic evidence of parathyroid adenoma. Signed by Yahir Biggs MD 11/16/2017 03:56 P
== END ==
LOC: M RAD 08:42
PROVIDERS: ATTEND Internal Medicine Endocrinology, Diabetes & Metabolism
DX: E21.0 Primary hyperparathyroidism (principal)
CPT/HCPCS: 78070; 78803; A9500

== ENCOUNTER → 2017-11-30 | Outpatient (REF) | payer BC ==
[2017-11-30 12:06] LABS: CALCIUM LEVEL 8.7 MG/DL (8.5-10.1); PHOSPHORUS LEVEL 2.4 MG/DL (2.5-4.9)
[2017-11-30 12:17] LABS: PTH INTACT 106.7 PG/ML (14.0-72.0)
[2017-11-30 12:17] LABS: TOTAL 25(OH) VITAMIN D 76.7 NG/ML (30.0-100.0)
== END ==
LOC: M LABDRAW1 10:48
DX: E21.0 Primary hyperparathyroidism (principal)
CPT/HCPCS: 82310

== ENCOUNTER 2020-03-30 15:31 | Emergency (ER) | payer BC ==
[~2020-03-30] VITALS: Ht 180.3 cm; Wt 111.3 kg
[~2020-03-30 15:31] MED LIST changes: -ASPI1TAB PO; +ASPI81TA26 PO; +FLOM0.4C39 PO; -FLOM5CAP PO; -OMEP40CA2 PO; +OMEP40CA97 PO
[2020-03-30 16:35] LABS: BASO # 0.1 10^3/uL (0.0-0.2); BASO % 0.5 % (0.0-1.0); EOS # 0.1 10^3/uL (0.0-0.5); EOS % 1.3 % (0.0-3.0); HEMOGLOBIN 15.8 g/dl (13.5-17.5); LYMPH # 1.7 10^3/uL (1.5-5.0); LYMPH % 17.1 % (24.0-44.0); MEAN CORPUSCULAR HEMOGLOBIN 29.5 pg (27.0-33.0); MEAN CORPUSCULAR HGB CONC 33.6 g/dl (32.0-36.5); MEAN CORPUSCULAR VOLUME 87.7 fl (80.0-96.0); MONO # 0.6 10^3/uL (0.0-0.8); NEUTROPHILS # 7.6 10^3/uL (1.5-8.5); NEUTROPHILS % 74.9 % (36.0-66.0); PLATELET COUNT, AUTOMATED 267 10^3/uL (150-450); RED BLOOD COUNT 5.36 10^6/uL (4.30-6.10); WHITE BLOOD COUNT 10.2 10^3/uL (4.0-10.0)
[2020-03-30 17:25] LABS: BILIRUBIN,DIRECT 0.2 MG/DL (0.0-0.2); BILIRUBIN,TOTAL 0.7 MG/DL (0.2-1.0); CALCIUM LEVEL 8.9 MG/DL (8.8-10.2); CREATININE FOR GFR 1.33 MG/DL (0.70-1.30); GLOMERULAR FILTRATION RATE 58.2 (>49); POTASSIUM SERUM 4.2 MEQ/L (3.5-5.1); TOTAL PROTEIN 7.6 GM/DL (6.4-8.2)
--- NOTE | 2020-03-30 17:38 | REP ---
REASON FOR EXAM: History of renal calculi now having left-sided pain. COMPARISON: Multiple, the latest 07/18/2017. The lung bases are clear. There is a 5-mm sized nonobstructing calculus in the inferior pole of the left kidney. This represents a change from the prior exams. There are no right nephroliths. There are no ureteroliths on either side. There is no hydronephrosis. There are no urinary bladder calcifications. There are bilateral pelvic phleboliths, and there is corpora amylacea, status quo. Limited evaluation of the solid intra-abdominal organs and gallbladder shows no gross abnormalities. Limited evaluation of the pancreas and adrenal glands shows no gross abnormalities or significant changes from the prior exams. Limited evaluation of the intra-abdominal and intrapelvic bowel loops and their mesenteries shows no gross abnormalities. There is sigmoid colon diverticulosis. No free fluid or free air is seen in the abdomen or pelvis. Bone window technique throughout the examination shows the osseous structures to be stable and intact. IMPRESSION: There is no evidence of acute intra-abdominal or intrapelvic disease. There is a 5-mm sized nonobstructing calculus in the inferior pole of the left kidney. There is sigmoid colon diverticulosis. Other findings as described above. Electronically Signed by Nicolas Tang DO 03/31/2020 11:55 A
[2020-03-30 18:10] VITALS: BP 141/82
== END 2020-03-30 18:24 | disposition home or self-care (01) ==
LOC: M ED 15:31
DX: R10.9 Unspecified abdominal pain (principal); I10 Essential (primary) hypertension; K21.9 Gastro-esophageal reflux disease without esophagitis; Z87.442 Personal history of urinary calculi; Z79.899 Other long term (current) drug therapy

== ENCOUNTER 2020-04-26 16:40 | Emergency (ER) | payer BC ==
[~2020-04-26] VITALS: Ht 177.8 cm; Wt 107.2 kg
[~2020-04-26 16:40] MED LIST changes: +ACET650T61 PO; -TYLE650T35 PO
[2020-04-26] MEDS ORDERED: NS 1,000 ML IV SCH (16:55)
[2020-04-26] MEDS ORDERED: KETOROLAC 30 MG/ML 1ML VIAL IV ONE (17:00)
[2020-04-26] MEDS ORDERED: ONDANSETRON 4MG/2ML VIAL IV ONE ×2 (17:00→19:00)
[2020-04-26] MEDS ORDERED: MORPHINE 2 MG/ML 1ML VIAL (J2270) IV ONE (17:00)
--- NOTE | 2020-04-26 17:48 | REPVR ---
PROCEDURE INFORMATION: Exam: CT Abdomen And Pelvis Without Contrast Exam date and time: 04/26/2020 5:29 PM Age: 59 years old Clinical indication: Abdominal pain; Additional info: Left renal colic TECHNIQUE: Imaging protocol: Computed tomography of the abdomen and pelvis without contrast. Radiation optimization: All CT scans at this facility use at least one of these dose optimization techniques: automated exposure control; mA and/or kV adjustment per patient size (includes targeted exams where dose is matched to clinical indication); or iterative reconstruction. COMPARISON: CT ABD PELVIS W/O CONTRAST 03/30/2020 4:08 PM FINDINGS: Liver: There is hypodense fatty infiltration of the liver. Gallbladder and bile ducts: No calcified stones. No ductal dilation. Pancreas: There is fatty infiltration of the head of the pancreas. Spleen: Unremarkable as visualized on these noncontrast images. No splenomegaly. Adrenals: No mass. Kidneys and ureters: Mild left hydronephrosis. Within the distal left ureter, there is a 5-6 mm obstructing calculus. Mild left perinephric stranding is identified, and pyelonephritis cannot be excluded. Additional stranding surrounds the left ureter. A tiny nonobstructing left renal calculus is visualized. No hydronephrosis of the right kidney. Stomach and bowel: The stomach is again distended. Colonic diverticula are identified, without acute inflammatory stranding of the adjacent mesentery. Patchy areas of colonic wall thickening identified, with additional wall thickening of the rectum. This is suggestive of incomplete distension or proctocolitis. Evaluation of bowel is limited by the absence of oral contrast. No bowel obstruction. Appendix: No evidence of appendicitis. Intraperitoneal space: No free air. Vasculature: Mild atherosclerotic changes. A nondilated abdominal aorta is identified. Lymph nodes: No enlarged lymph nodes. Bladder: Unremarkable as visualized. Reproductive: Calcifications are identified within the prostate. Bones/joints: Hypertrophic degenerative changes are noted within the spine. Soft tissues: Herniation of fat into the bilateral inguinal canals. Minimal herniation of fat into the umbilicus. Other findings: Minimal dependent atelectatic change within both lower lobes. IMPRESSION: 1. Mild left hydronephrosis. Within the distal left ureter, there is a 5-6 mm obstructing calculus. Mild left perinephric stranding is identified, and pyelonephritis cannot be excluded. Additional stranding surrounds the left ureter. A tiny nonobstructing left renal calculus is visualized. 2. The stomach is again distended. 3. There is fatty infiltration of the liver. 4. Diverticulosis. 5. Patchy areas of colonic wall thickening identified, with additional wall thickening of the rectum. This is suggestive of incomplete distension or proctocolitis. 6. Additional findings described above. Electronically signed by: Seamus Mejia On 04/26/2020 17:47:31 PM
[2020-04-26 18:34] LABS: BASO % 0.3 % (0.0-1.0); EOS % 0.3 % (0.0-3.0); HEMATOCRIT 43.5 % (42.0-52.0); HEMOGLOBIN 14.4 g/dl (13.5-17.5); LYMPH % 9.5 % (24.0-44.0); MEAN CORPUSCULAR HEMOGLOBIN 29.3 pg (27.0-33.0); MEAN CORPUSCULAR HGB CONC 33.1 g/dl (32.0-36.5); MEAN CORPUSCULAR VOLUME 88.6 fl (80.0-96.0); MONO # 0.4 10^3/uL (0.0-0.8); MONO % 3.9 % (0.0-5.0); NEUTROPHILS # 9.2 10^3/uL (1.5-8.5); NEUTROPHILS % 85.6 % (36.0-66.0); PLATELET COUNT, AUTOMATED 219 10^3/uL (150-450); RED BLOOD COUNT 4.91 10^6/uL (4.30-6.10); WHITE BLOOD COUNT 10.7 10^3/uL (4.0-10.0)
[2020-04-26 18:50] LABS: ALBUMIN 3.9 GM/DL (3.2-5.2); BILIRUBIN,DIRECT 0.1 MG/DL (0.0-0.2); BILIRUBIN,TOTAL 0.5 MG/DL (0.2-1.0); CALCIUM LEVEL 8.5 MG/DL (8.8-10.2); CREATININE FOR GFR 1.44 MG/DL (0.70-1.30); GLOMERULAR FILTRATION RATE 53.1 (>49); POTASSIUM SERUM 3.6 MEQ/L (3.5-5.1); TOTAL PROTEIN 6.8 GM/DL (6.4-8.2)
[2020-04-26] MEDS ORDERED: NORC1TAB7 PO (19:08)
[2020-04-26] MEDS ORDERED: ZOFR4TAB16 PO (19:08)
[2020-04-26 19:20] VITALS: BP 136/86
[2020-04-26] MEDS ORDERED: NORCO 5/325MG TABLET (BULK FOR ED) PO ONE (20:00)
[2020-05-12] MEDS ORDERED: FLOM0.4C39 PO (11:25)
== END 2020-04-26 19:25 | disposition home or self-care (01) ==
LOC: M ED 16:40
DX: N20.1 Calculus of ureter (principal); I10 Essential (primary) hypertension; K21.9 Gastro-esophageal reflux disease without esophagitis; Z79.899 Other long term (current) drug therapy
CPT/HCPCS: 36415; 74176; 80048; 80076; 81001; 83690; 85025; 96361; 96374; 96375; 96376; 99284; J1885; J2270; J2405

== ENCOUNTER → 2020-05-04 | Outpatient (CLI) | payer BC ==
[~2020-05-04] MED LIST changes: -ACET650T61 PO; +NORC1TAB7 PO; +TYLE650T35 PO; +ZOFR4TAB16 PO
[2020-05-04 17:37] LABS: BASO % 0.7 % (0.0-1.0); EOS # 0.1 10^3/uL (0.0-0.5); EOS % 2.5 % (0.0-3.0); HEMATOCRIT 43.6 % (42.0-52.0); HEMOGLOBIN 14.2 g/dl (13.5-17.5); LYMPH # 1.9 10^3/uL (1.5-5.0); LYMPH % 34.1 % (24.0-44.0); MEAN CORPUSCULAR HGB CONC 32.6 g/dl (32.0-36.5); MEAN CORPUSCULAR VOLUME 89.2 fl (80.0-96.0); MONO # 0.5 10^3/uL (0.0-0.8); MONO % 8.7 % (0.0-5.0); NEUTROPHILS % 53.5 % (36.0-66.0); PLATELET COUNT, AUTOMATED 231 10^3/uL (150-450); RED BLOOD COUNT 4.89 10^6/uL (4.30-6.10); WHITE BLOOD COUNT 5.5 10^3/uL (4.0-10.0)
[2020-05-04 17:50] LABS: ALBUMIN 3.8 GM/DL (3.2-5.2); BILIRUBIN,TOTAL 0.6 MG/DL (0.2-1.0); CREATININE FOR GFR 1.35 MG/DL (0.70-1.30); GLOMERULAR FILTRATION RATE 57.2 (>49); POTASSIUM SERUM 4.4 MEQ/L (3.5-5.1); THYROID STIMULATING HORMONE 0.739 uIU/ML (0.358-3.740)
== END ==
LOC: M PLALAB 14:20
PROVIDERS: ATTEND Psychiatry & Neurology Neurology
DX: G25.81 Restless legs syndrome (principal); G47.61 Periodic limb movement disorder

== ENCOUNTER → 2020-05-11 | Outpatient (CLI) | payer BC ==
--- NOTE | 2020-05-11 16:57 | REPPI ---
Clinical: Ureteral stone and hydronephrosis. Technique: Two supine views of the abdomen and pelvis. Findings: A few rounded calcifications in the pelvis are nonspecific and may represent phleboliths. Evaluation of the urinary tract system is limited due to technique and overlying bowel gas. No obvious intrarenal calculi identified. Skeletal structures are intact. Impression: Small rounded calcifications in the pelvis are nonspecific and may represent phleboliths although previously noted distal left ureteral calculus cannot be excluded. Electronically Signed by Clark Gray MD 05/11/2020 04:48 P
[2020-05-11 19:28] LABS: APPEARANCE, URINE HAZY (CLEAR); BACTERIA, URINE AUTO NEGATIVE (NEGATIVE); BILIRUBIN, URINE AUTO NEGATIVE (NEGATIVE); BLOOD, URINE BLOOD NEGATIVE (NEGATIVE); CALCIUM OXALATE CRYSTALS MODERATE; COLOR, URINE YELLOW (YELLOW); GLUCOSE, URINE (UA) AUTO NEGATIVE (NEGATIVE); KETONE, URINE AUTO NEGATIVE (NEGATIVE); LEUKOCYTE ESTERASE, URINE AUTO NEGATIVE (NEGATIVE); MUCUS, URINE SMALL (NEGATIVE); NITRITE, URINE AUTO NEGATIVE (NEGATIVE); PROTEIN, URINE AUTO NEGATIVE (NEGATIVE); RBC, URINE AUTO 1 /HPF (0-3); SPECIFIC GRAVITY URINE AUTO 1.025 (1.002-1.035); SQUAMOUS EPITHELIAL CELL UR AU 0 /HPF (0-6); UROBILINOGEN, URINE AUTO 0.2 mg/dL (0.0-2.0); WBC, URINE AUTO 0 /HPF (0-3)
== END ==
LOC: M PLAIMG 15:10
PROVIDERS: ATTEND Nurse Practitioner Women's Health
DX: N13.2 Hydronephrosis with renal and ureteral calculous obstruction (principal)

== ENCOUNTER → 2020-05-16 | Outpatient (CLI) | payer BC | LOC: M LABSMTC 09:54 | PROVIDERS: ATTEND Anesthesiology | DX: Z01.818 Encounter for other preprocedural examination (principal); Z11.59 Encounter for screening for other viral diseases | CPT/HCPCS: C9803; U0003 ==

== ENCOUNTER 2020-05-19 08:48 | Day surgery (SDC) | payer BC ==
[~2020-05-19] VITALS: Ht 177.8 cm; Wt 105.2 kg
[~2020-05-19 08:48] MED LIST changes: +LIDOCAINE 2% 100MG/5ML SDV (FOR ANES.) As Ordered ONE; +NS 1,000 ML IV SCH; +propofoL 200 MG/20 ML VIAL As Ordered ONE
[2020-05-19] MEDS ORDERED: propofoL 200 MG/20 ML VIAL As Ordered ONE ×2 (09:58→10:07)
--- NOTE | 2020-05-19 09:58 | ROOR ---
Patient Name: Yakov Candelaria Procedure Date: 05/19/2020 9:46 AM Date of : 1960 Age: 59 Room: [facility] Gender: Male Note Status: Finalized Procedure: Upper Endoscopy + Biopsies Indications: Heartburn, Exclusion of Hernández's esophagus Providers: Koffi Moffett MD Referring MD: LISSETT RODRIGUEZ MD Requesting Provider: Medicines: Monitored Anesthesia Care Complications: No immediate complications. Procedure: Pre-Anesthesia Assessment: - The heart rate, respiratory rate, oxygen saturations, blood pressure, adequacy of pulmonary ventilation, and response to care were monitored throughout the procedure. The Endoscope was introduced through the mouth, and advanced to the second part of duodenum. The upper GI endoscopy was accomplished without difficulty. The patient tolerated the procedure well. Findings: The Z-line was irregular and was found 39 cm from the incisors. Multiple biopsies were obtained with cold forceps for evaluation to rule out Hernández's Esophagus randomly at the gastroesophageal junction. A small hiatal hernia was present. No other significant abnormalities were identified in a careful examination of the stomach. The exam of the duodenum was otherwise normal. Impression: - Z-line irregular, 39 cm from the incisors. - Small hiatal hernia. - Multiple biopsies were obtained at the gastroesophageal junction. - The examination was otherwise normal. Recommendation: - Patient has a contact number available for emergencies. The signs and symptoms of potential delayed complications were discussed with the patient. Return to normal activities tomorrow. Written discharge instructions were provided to the patient. - High fiber diet. - Discharge patient to home. - Follow an antireflux regimen. - Continue present medications. - Await pathology results. - Telephone GI clinic for pathology results in 1 week. - Return to referring physician. - The findings and recommendations were discussed with the patient's family. Koffi Moffett MD Koffi Moffett MD 05/19/2020 9:58:11 AM Electronically signed by Koffi Moffett MD Number of Addenda: 0 Note Initiated On: 05/19/2020 9:46 AM Estimated Blood Loss: Estimated blood loss: none.
--- NOTE | 2020-05-19 10:13 | ROOR ---
Patient Name: Yakov Candelaria Procedure Date: 05/19/2020 9:46 AM Date of : 1960 Age: 59 Room: [facility] Gender: Male Note Status: Finalized Procedure: Total Colonoscopy to Cecum + Biopsy Polypectomy Indications: Screening for colorectal malignant neoplasm Providers: Koffi Moffett MD Referring MD: LISSETT RODRIGUEZ MD Requesting Provider: Medicines: Monitored Anesthesia Care Complications: No immediate complications. Procedure: Pre-Anesthesia Assessment: - The heart rate, respiratory rate, oxygen saturations, blood pressure, adequacy of pulmonary ventilation, and response to care were monitored throughout the procedure. The Colonoscope was introduced through the anus and advanced to the cecum, identified by appendiceal orifice and ileocecal valve. The colonoscopy was performed without difficulty. The patient tolerated the procedure well. The quality of the bowel preparation was excellent. Findings: The perianal and digital rectal examinations were normal. Non-bleeding internal hemorrhoids were found during retroflexion. The hemorrhoids were small and Grade I (internal hemorrhoids that do not prolapse). Multiple small and large-mouthed diverticula were found in the recto-sigmoid colon, sigmoid colon and descending colon. A diminutive polyp was found in the cecum. The polyp was sessile. The polyp was removed with a cold biopsy forceps. Resection and retrieval were complete. A diminutive polyp was found at 45 cm proximal to the anus. The polyp was sessile. The polyp was removed with a cold biopsy forceps. Resection and retrieval were complete. The exam was otherwise without abnormality on direct and retroflexion views. Impression: - Non-bleeding internal hemorrhoids. - Diverticulosis in the recto-sigmoid colon, in the sigmoid colon and in the descending colon. - One diminutive polyp in the cecum, removed with a cold biopsy forceps. Resected and retrieved. - One diminutive polyp at 45 cm proximal to the anus, removed with a cold biopsy forceps. Resected and retrieved. - The examination was otherwise normal on direct and retroflexion views. - The exam was otherwise normal to the cecum. Recommendation: - Patient has a contact number available for emergencies. The signs and symptoms of potential delayed complications were discussed with the patient. Return to normal activities tomorrow. Written discharge instructions were provided to the patient. - High fiber diet. - Discharge patient to home. - Continue present medications. - Await pathology results. - Telephone GI clinic for pathology results in 1 week. - Repeat colonoscopy in 5 years for surveillance based on pathology results. - Return to referring physician. - The findings and recommendations were discussed with the patient's family. Koffi Moffett MD Koffi Moffett MD 05/19/2020 10:13:11 AM Electronically signed by Koffi Moffett MD Number of Addenda: 0 Note Initiated On: 05/19/2020 9:46 AM Estimated Blood Loss: Estimated blood loss: none.
[2020-05-19 10:57] VITALS: BP 112/57
== END 2020-05-19 11:10 | disposition home or self-care (01) ==
LOC: M OPP 08:48
PROVIDERS: ATTEND Internal Medicine Gastroenterology
DX: Z12.11 Encounter for screening for malignant neoplasm of colon (principal); K64.0 First degree hemorrhoids; D12.0 Benign neoplasm of cecum; D12.6 Benign neoplasm of colon, unspecified; K57.30 Diverticulosis of large intestine without perforation or abscess without bleeding; Z79.899 Other long term (current) drug therapy

== ENCOUNTER → 2021-01-03 | Outpatient (CLI) | payer BC ==
[~2021-01-03] MED LIST changes: +ACET650T61 PO; -LIDOCAINE 2% 100MG/5ML SDV (FOR ANES.) As Ordered ONE; -NS 1,000 ML IV SCH; -TYLE650T35 PO; -propofoL 200 MG/20 ML VIAL As Ordered ONE
--- NOTE | 2021-01-04 10:54 | REPPI ---
INDICATION: LOW BACK PAIN COMPARISON: None. TECHNIQUE: AP, lateral, flexion/extension, bilateral oblique, and coned-down views. FINDINGS: Alignment and lordosis is maintained. The vertebral bodies including transverse process and spinous processes are intact and normal. There is no evidence for acute fracture / compression injury or subluxation. No evidence for spondylolysis or spondylolisthesis. Mild age-related changes include subtle endplate sclerosis and minimal facet hypertrophy. Disc spaces are relatively well maintained. IMPRESSION: Essentially age-appropriate lumbosacral spine radiograph series. If the patient remains symptomatic consider MRI for further investigation. <Electronically signed by Clark Gray > 01/04/21 [id number]
== END ==
LOC: M PLAIMG 13:32
PROVIDERS: ATTEND Family Medicine
DX: M54.5 Low back pain (principal)

== ENCOUNTER → 2021-01-06 | Outpatient (REF) | payer BC ==
[2021-01-06 11:00] LABS: ALBUMIN 3.9 GM/DL (3.2-5.2); BILIRUBIN,TOTAL 0.7 MG/DL (0.2-1.0); CHOLESTEROL RISK RATIO 3.77 (<5); CREATININE FOR GFR 1.35 MG/DL (0.70-1.30); POTASSIUM SERUM 5.4 MEQ/L (3.5-5.1); TOTAL PROTEIN 7.1 GM/DL (6.4-8.2)
== END ==
LOC: M SFHCPLAZ 08:11
PROVIDERS: ATTEND Family Medicine
DX: Z13.220 Encounter for screening for lipoid disorders (principal); I10 Essential (primary) hypertension

== ENCOUNTER → 2021-06-06 | Outpatient (CLI) | payer BC ==
[~2021-06-06] MED LIST changes: +OMEP40CA4 PO; -OMEP40CA97 PO
[2021-06-06 13:52] LABS: BLOOD UREA NITROGEN 18 MG/DL (7-18); CALCIUM LEVEL 9.1 MG/DL (8.8-10.2); CARBON DIOXIDE LEVEL 30 MEQ/L (21-32); CHLORIDE LEVEL 106 MEQ/L (98-107); CREATININE FOR GFR 1.18 MG/DL (0.70-1.30); GLOMERULAR FILTRATION RATE > 60.0 (>49); GLUCOSE, FASTING 94 MG/DL (70-100); PHOSPHORUS LEVEL 2.7 MG/DL (2.5-4.9); POTASSIUM SERUM 5.1 MEQ/L (3.5-5.1); SODIUM LEVEL 140 MEQ/L (136-145)
[2021-06-06 14:03] LABS: HEMOGLOBIN A1c 5.8 %
== END ==
LOC: M PLALAB 11:20
PROVIDERS: ATTEND Family Medicine
DX: R73.01 Impaired fasting glucose (principal); E87.5 Hyperkalemia; I10 Essential (primary) hypertension

== ENCOUNTER 2021-10-25 09:12 | Emergency (ER) | payer BC ==
[~2021-10-25] VITALS: Ht 180.3 cm; Wt 103.2 kg
[2021-10-25 12:56] LABS: BASO % 0.4 % (0.0-1.0); EOS % 0.4 % (0.0-3.0); HEMATOCRIT 49.4 % (42.0-52.0); HEMOGLOBIN 16.3 g/dl (13.5-17.5); LYMPH # 1.7 10^3/uL (1.5-5.0); LYMPH % 16.7 % (24.0-44.0); MEAN CORPUSCULAR HEMOGLOBIN 29.2 pg (27.0-33.0); MEAN CORPUSCULAR VOLUME 88.4 fl (80.0-96.0); MONO # 0.6 10^3/uL (0.0-0.8); NEUTROPHILS # 7.9 10^3/uL (1.5-8.5); NEUTROPHILS % 76.2 % (36.0-66.0); PLATELET COUNT, AUTOMATED 251 10^3/uL (150-450); RED BLOOD COUNT 5.59 10^6/uL (4.30-6.10); WHITE BLOOD COUNT 10.4 10^3/uL (4.0-10.0)
[2021-10-25 13:27] LABS: BLOOD UREA NITROGEN 16 MG/DL (7-18); CALCIUM LEVEL 9.5 MG/DL (8.8-10.2); CARBON DIOXIDE LEVEL 30 MEQ/L (21-32); CHLORIDE LEVEL 107 MEQ/L (98-107); CREATININE FOR GFR 1.24 MG/DL (0.70-1.30); GLOMERULAR FILTRATION RATE > 60.0 (>49); GLUCOSE, FASTING 107 MG/DL (70-100); SODIUM LEVEL 141 MEQ/L (136-145); THYROID STIMULATING HORMONE 0.941 uIU/ML (0.358-3.740)
[2021-10-25 14:09] VITALS: BP 144/92
== END 2021-10-25 14:15 | disposition home or self-care (01) ==
LOC: M ED 09:12
DX: R42 Dizziness and giddiness (principal); I10 Essential (primary) hypertension; K21.9 Gastro-esophageal reflux disease without esophagitis; M48.00 Spinal stenosis, site unspecified; Z87.442 Personal history of urinary calculi; Z79.899 Other long term (current) drug therapy

== ENCOUNTER → 2023-09-11 | Outpatient (CLI) | payer BC ==
[2023-09-11 14:26] LABS: HEMOGLOBIN A1c 5.3 % (4.0-6.0)
[2023-09-11 14:45] LABS: ALKALINE PHOSPHATASE 76 U/L (46-116); ALT/SGPT 46 U/L (7.0-40); AST/SGOT 28 U/L (<34); BILIRUBIN,TOTAL 1.4 MG/DL (0.3-1.2); BLOOD UREA NITROGEN 17 MG/DL (9-23); CALCIUM LEVEL 9.3 MG/DL (8.3-10.6); CARBON DIOXIDE LEVEL 31 MMOL/L (20-31); CHLORIDE LEVEL 106 MMOL/L (98-107); CHOLESTEROL LEVEL 197 MG/DL (<200); CHOLESTEROL RISK RATIO 3.87 (<5); CREATININE FOR GFR 1.18 MG/DL (0.70-1.30); GLOMERULAR FILTRATION RATE > 60.0 (>49); GLUCOSE, FASTING 96 MG/DL (74-106); HDL CHOLESTEROL 50.8 MG/DL (>40); LDL CHOLESTEROL 93.8 MG/DL (<100); NON-HDL-C 146.2 MG/DL; POTASSIUM SERUM 5.7 MMOL/L (3.5-5.1); SODIUM LEVEL 141 MMOL/L (136-145); TRIGLYCERIDES LEVEL 262 MG/DL (<150)
== END ==
LOC: M PLALAB 09:08
PROVIDERS: ATTEND Family Medicine
DX: I10 Essential (primary) hypertension (principal); R73.01 Impaired fasting glucose; E78.1 Pure hyperglyceridemia

== ENCOUNTER 2024-02-04 10:10 | Day surgery (SDC) | payer MEDICARE, BC ==
[~2024-02-04] VITALS: Ht 177.8 cm; Wt 103.7 kg
[2024-02-04] MEDS: NS 1,000 ML IV ONE (11:09)
[2024-02-04] MEDS ORDERED: fentaNYL 100 MCG/2 ML INJECTION As Ordered ONE (11:57)
[2024-02-04] MEDS ORDERED: propofoL 200 MG/20 ML VIAL As Ordered ONE (11:58)
[2024-02-04 12:25] VITALS: TEMP 97.9
[2024-02-04 12:41] VITALS: BP 110/70; O2SAT 94
== END 2024-02-04 12:50 | disposition home or self-care (01) ==
LOC: M OPP 10:10
PROVIDERS: ATTEND Internal Medicine Gastroenterology
DX: Z12.11 Encounter for screening for malignant neoplasm of colon (principal); Z86.010 Personal history of colon polyps; K64.0 First degree hemorrhoids; K57.30 Diverticulosis of large intestine without perforation or abscess without bleeding; K31.89 Other diseases of stomach and duodenum; R12 Heartburn; Z79.899 Other long term (current) drug therapy
CPT/HCPCS: 88305; G0105; J3010

== ENCOUNTER → 2024-03-06 | Outpatient (CLI) | payer MEDICARE, BC | LOC: M PLAIMG 16:23 | PROVIDERS: ATTEND Family Medicine | DX: M54.2 Cervicalgia (principal) ==

== ENCOUNTER → 2024-03-06 | Outpatient (REF) | payer MEDICARE, BC | LOC: M SFHCPLAZ 16:01 | PROVIDERS: ATTEND Family Medicine | DX: E87.5 Hyperkalemia (principal) ==

== ENCOUNTER → 2024-03-18 | Outpatient (CLI) | payer MEDICARE, BC ==
[2024-03-18 11:48] LABS: ALBUMIN 4.2 G/DL (3.2-5.2); ALKALINE PHOSPHATASE 74 U/L (46-116); ALT/SGPT 50 U/L (7.0-40); AST/SGOT 26 U/L (<34); BILIRUBIN,TOTAL 1.6 MG/DL (0.3-1.2); BLOOD UREA NITROGEN 13 MG/DL (9-23); CALCIUM LEVEL 9.6 MG/DL (8.3-10.6); CARBON DIOXIDE LEVEL 30 MMOL/L (20-31); CHLORIDE LEVEL 103 MMOL/L (98-107); CREATININE FOR GFR 1.25 MG/DL (0.70-1.30); GLOMERULAR FILTRATION RATE > 60.0 (>49); GLUCOSE, FASTING 86 MG/DL (74-106); POTASSIUM SERUM 4.5 MMOL/L (3.5-5.1); SODIUM LEVEL 140 MMOL/L (136-145); TOTAL PROTEIN 7.1 G/DL (5.7-8.2)
== END ==
LOC: M PLALAB 09:03
PROVIDERS: ATTEND Family Medicine
DX: E87.5 Hyperkalemia (principal)

== ENCOUNTER → 2024-12-31 | Outpatient (CLI) | payer MEDICARE, BC ==
[~2024-12-31] MED LIST changes: +EXCETAB32 PO; +GNP250TA9 PO; +VITA100093 PO
[2024-12-31 13:18] LABS: BASO % 0.4 % (0.0-1.0); EOS # 0.3 10^3/uL (0.0-0.5); EOS % 3.8 % (0.0-3.0); HEMATOCRIT 48.7 % (42.0-52.0); HEMOGLOBIN 16.4 g/dl (13.5-17.5); LYMPH # 2.6 10^3/uL (1.5-5.0); MEAN CORPUSCULAR HEMOGLOBIN 29.8 pg (27.0-33.0); MEAN CORPUSCULAR HGB CONC 33.7 g/dl (32.0-36.5); MEAN CORPUSCULAR VOLUME 88.5 fl (80.0-96.0); MONO # 0.7 10^3/uL (0.0-0.8); MONO % 9.2 % (2.0-8.0); NEUTROPHILS # 3.5 10^3/uL (1.5-8.5); NEUTROPHILS % 49.3 % (36.0-66.0); PLATELET COUNT, AUTOMATED 255 10^3/uL (150-450); WHITE BLOOD COUNT 7.1 10^3/uL (4.0-10.0)
[2024-12-31 13:44] LABS: ALBUMIN 4.1 G/DL (3.2-5.2); ALKALINE PHOSPHATASE 70 U/L (40-129); ALT/SGPT 46 U/L (7.0-40); AST/SGOT 25 U/L (<34); BILIRUBIN,TOTAL 1.6 MG/DL (0.3-1.2); BLOOD UREA NITROGEN 17 MG/DL (9-23); CALCIUM LEVEL 9.4 MG/DL (8.3-10.6); CARBON DIOXIDE LEVEL 31 MMOL/L (20-31); CHLORIDE LEVEL 101 MMOL/L (98-107); CREATININE FOR GFR 1.16 MG/DL (0.70-1.30); GLOMERULAR FILTRATION RATE > 60.0 (>49); GLUCOSE, FASTING 73 MG/DL (74-106); POTASSIUM SERUM 5.3 MMOL/L (3.5-5.1); SODIUM LEVEL 140 MMOL/L (136-145); TOTAL PROTEIN 7.4 G/DL (5.7-8.2)
== END ==
LOC: M PLALAB 11:18
PROVIDERS: ATTEND Student in an Organized Health Care Education/Training Program
DX: Z01.818 Encounter for other preprocedural examination (principal)

== ENCOUNTER 2025-01-09 06:05 | Day surgery (SDC) | payer MEDICARE, BC ==
[~2025-01-09] VITALS: Ht 177.8 cm; Wt 104.1 kg
[~2025-01-09 06:05] MED LIST changes: -GNP250TA9 PO; -VITA100093 PO
[2025-01-09] MEDS ORDERED: GNP250TA9 PO (06:47)
[2025-01-09] MEDS ORDERED: VITA100093 PO (06:47)
[2025-01-09] MEDS: ceFAZolin SOD 2 GM in IV 1 EA IV ONE (07:33)
[2025-01-09] MEDS ORDERED: SUGAMMADEX SODIUM 500 MG/5 ML VIAL (BRIDION) As Ordered ONE (08:13)
[2025-01-09] MEDS ORDERED: ACETAMINOPHEN 1000MG/100ML IV BAG As Ordered ONE (08:13)
[2025-01-09] MEDS ORDERED: ONDANSETRON 4MG 2ML VIAL As Ordered ONE (08:13)
[2025-01-09] MEDS ORDERED: KETOROLAC 60MG 2ML VIAL As Ordered ONE (08:13)
[2025-01-09] MEDS ORDERED: ROCURONIUM BROMIDE 50MG/5ML VIAL As Ordered ONE (08:13)
[2025-01-09] MEDS ORDERED: LIDOCAINE 2% 100MG/5ML SDV (FOR ANES.) As Ordered ONE (08:13)
[2025-01-09] MEDS ORDERED: METOCLOPRAMIDE INJ 10MG/2ML VIAL As Ordered ONE (08:13)
[2025-01-09] MEDS ORDERED: MIDAZOLAM INJ 2MG/2ML VIAL As Ordered ONE (08:13)
[2025-01-09] MEDS ORDERED: dexmedeTOMIDine (4MCG/ML)200MCG/50ML BTL (PRECEDEX) As Ordered ONE (08:13)
[2025-01-09] MEDS ORDERED: fentaNYL 250 MCG/5 ML INJECTION As Ordered ONE (08:13)
[2025-01-09] MEDS ORDERED: propofoL 200 MG/20 ML VIAL As Ordered ONE (08:13)
[2025-01-09] MEDS ORDERED: SEVOFLURANE INHAL SOLN 250 ML BTL As Ordered ONE (08:39)
[2025-01-09] MEDS ORDERED: oxyCODONE 5MG TAB PO PRN (08:50)
[2025-01-09] MEDS ORDERED: fentaNYL 100 MCG/2 ML INJECTION IV PRN (08:50)
[2025-01-09] MEDS ORDERED: ONDANSETRON 4MG 2ML VIAL IV PRN (08:50)
[2025-01-09 09:54] VITALS: BP 109/67; TEMP 97.2; O2SAT 97
== END 2025-01-09 10:44 | disposition home or self-care (01) ==
LOC: M SDC 06:05
PROVIDERS: ATTEND Surgery
DX: K40.90 Unilateral inguinal hernia, without obstruction or gangrene, not specified as recurrent (principal); R06.83 Snoring; I10 Essential (primary) hypertension; R12 Heartburn; Z79.899 Other long term (current) drug therapy; Z87.442 Personal history of urinary calculi
CPT/HCPCS: 49650; 93005; C1781; J0131; J0665; J0690; J1100; J1885; J2250; J2405; J2765; J3010; S2900

== ENCOUNTER → 2025-03-02 | Outpatient (CLI) | payer MEDICARE, BC ==
[~2025-03-02] MED LIST changes: +GNP250TA9 PO; +VITA100093 PO
[2025-03-02 10:44] LABS: ALBUMIN 3.8 G/DL (3.2-5.2); ALKALINE PHOSPHATASE 82 U/L (40-129); ALT/SGPT 30 U/L (7.0-40); AST/SGOT 17 U/L (<34); BILIRUBIN,TOTAL 0.4 MG/DL (0.3-1.2); BLOOD UREA NITROGEN 12 MG/DL (9-23); CALCIUM LEVEL 8.9 MG/DL (8.3-10.6); CARBON DIOXIDE LEVEL 31 MMOL/L (20-31); CHLORIDE LEVEL 104 MMOL/L (98-107); CHOLESTEROL LEVEL 164 MG/DL (<200); CHOLESTEROL RISK RATIO 3.81 (<5); GLOMERULAR FILTRATION RATE > 60.0 (>49); GLUCOSE, FASTING 116 MG/DL (74-106); LDL CHOLESTEROL 68.8 MG/DL (<100); SODIUM LEVEL 145 MMOL/L (136-145); TOTAL PROTEIN 6.9 G/DL (5.7-8.2); TRIGLYCERIDES LEVEL 261 MG/DL (<150)
[2025-03-02 10:46] LABS: THYROID STIMULATING HORMONE 2.042 uIU/ML (0.55-4.78)
[2025-03-02 10:58] LABS: HEMOGLOBIN A1c 5.8 % (4.0-6.0)
== END ==
LOC: M PLALAB 07:04
PROVIDERS: ATTEND Family Medicine
DX: I10 Essential (primary) hypertension (principal); E78.1 Pure hyperglyceridemia; E80.6 Other disorders of bilirubin metabolism; Z13.29 Encounter for screening for other suspected endocrine disorder; R73.01 Impaired fasting glucose

== ENCOUNTER → 2025-08-28 | Outpatient (CLI) | payer MEDICARE, BC ==
[~2025-08-28] MED LIST changes: -FLOM0.4C39 PO; +TAMS-18 PO
[2025-08-28 11:33] LABS: ESTIMATED AVERAGE GLUCOSE 120.0 MG/DL (60-110)
== END ==
LOC: M PLALAB 08:55
PROVIDERS: ATTEND Family Medicine
DX: R73.01 Impaired fasting glucose (principal)

== ENCOUNTER 2025-10-13 06:46 | Emergency (ER) | payer MEDICARE, BC ==
[~2025-10-13] VITALS: Ht 177.8 cm; Wt 100.0 kg
[2025-10-13 06:50] VITALS: TEMP 96.7
[2025-10-13 07:47] LABS: BASO # 0.1 10^3/uL (0.0-0.2); BASO % 0.8 % (0.0-1.0); EOS # 0.2 10^3/uL (0.0-0.5); EOS % 2.7 % (0.0-3.0); LYMPH # 2.0 10^3/uL (1.5-5.0); LYMPH % 33.6 % (24.0-44.0); MONO # 0.5 10^3/uL (0.0-0.8); MONO % 8.3 % (2.0-8.0); NEUTROPHILS # 3.2 10^3/uL (1.5-8.5); NEUTROPHILS % 54.4 % (36.0-66.0); PLATELET COUNT, AUTOMATED 242 10^3/uL (150-450)
[2025-10-13 08:06] LABS: ALT/SGPT 30.0 U/L (7.0-40); AST/SGOT 23.0 U/L (<34); CALCIUM LEVEL 9.0 MG/DL (8.3-10.6); CARBON DIOXIDE LEVEL 31.0 MMOL/L (20-31); CHLORIDE LEVEL 103.0 MMOL/L (98-107); CK-MB VALUE MASS 1.1 NG/ML (<3.6); CREATININE FOR GFR 1.19 MG/DL (0.70-1.30); GLOMERULAR FILTRATION RATE 67.4 (>49); POTASSIUM SERUM 4.5 MMOL/L (3.5-5.1); SODIUM LEVEL 141.0 MMOL/L (136-145)
[2025-10-13 08:07] LABS: FREE T4 1.15 NG/DL (0.89-1.76)
[2025-10-13] MEDS ORDERED: ISOVUE-370 76% 100 ML VIAL As Ordered ONE (08:07)
[2025-10-13 08:10] LABS: CPK CREATINE PHOSPHOKINASE 108.0 U/L (46-171); MB/CK RELATIVE INDEX 1.01 (< OR =4)
[2025-10-13] MEDS ORDERED: FAMO20TA PO (08:28)
[2025-10-13] MEDS ORDERED: ATEN50TA2 PO (08:28)
[2025-10-13] MEDS ORDERED: HOME MED LIST COMPLETE! XX SCH (08:30)
[2025-10-13 09:54] LABS: CK-MB VALUE MASS < 1.0 NG/ML (<3.6)
[2025-10-13 09:55] LABS: CPK CREATINE PHOSPHOKINASE 85 U/L (46-171)
[2025-10-13 10:00] VITALS: BP 139/89; O2SAT 96
== END 2025-10-13 10:21 | disposition home or self-care (01) ==
LOC: M ED 06:46
DX: R07.9 Chest pain, unspecified (principal); R00.1 Bradycardia, unspecified; K21.9 Gastro-esophageal reflux disease without esophagitis; Z87.442 Personal history of urinary calculi
CPT/HCPCS: 36415; 71045; 71275; 80047; 80048; 80076; 82550; 82553; 83690; 84439; 84443; 84484; 85025; 93005; 93041; 94760; 99285; Q9967